=== PATIENT | male | born 1975 | race Hispanic/Latino ===

== ENCOUNTER 2018-05-04 07:10 | Day surgery (SDC) | payer OTHER, MEDICARE ==
[~2018-05-04] VITALS: Ht 167.6 cm; Wt 72.2 kg
[2018-05-04] VITALS (8 sets, daily range): BP systolic 65–144; BP diastolic 31–87
[~2018-05-04 07:10] MED LIST: SODIUM CHLORIDE 0.9% 1000ML 1,000 ML IV ONE
[2018-05-04] MEDS ORDERED: PROPOFOL 10 MG/ML 20ML VIAL IV ONE ×2 (08:21→08:38)
[2018-05-04] MEDS ORDERED: ESOM40CA54 PO (08:23)
[2018-05-04] MEDS ORDERED: TRAM50TA4 PO (08:23)
[2018-05-04] MEDS ORDERED: MULT1TAB66 PO (08:23)
[2018-05-04] MEDS ORDERED: PROP10TA10 PO (08:23)
== END 2018-05-04 09:41 | disposition home or self-care (01) ==
LOC: DAH 07:10 → ENDO 07:10
PROVIDERS: ATTEND Internal Medicine
DX: D12.0 Benign neoplasm of cecum (principal); K64.4 Residual hemorrhoidal skin tags; K64.1 Second degree hemorrhoids; K29.50 Unspecified chronic gastritis without bleeding; I10 Essential (primary) hypertension; F41.9 Anxiety disorder, unspecified; F32.9 Major depressive disorder, single episode, unspecified; K74.60 Unspecified cirrhosis of liver; Z79.899 Other long term (current) drug therapy; Z98.890 Other specified postprocedural states; K92.1 Melena
CPT/HCPCS: 43239; 43244; 45385; A4606; J2704 ×2; J7030